=== PATIENT | male | born 2000 | race Hispanic/Latino ===

== ENCOUNTER 2024-12-02 13:57 | Emergency (ER) | payer MEDICAID ==
[~2024-12-02] VITALS: Ht 167.6 cm; Wt 72.6 kg
--- NOTE | 2024-12-02 15:46 | EKG ---
[facility] Test Date: 2024-12-02 Test Time: 15:44:11 Pat Name: BIJAL SKINNER Department: ED Room: Gender: M [employer]: [phone] : [phone] Requested By: ANOOP LEIGH Order Number: [id number] Reading MD: Jesus Adkins Measurements Intervals [place] Rate: 68 P: 71 MD: 156 QRS: 132 QRSD: 108 T: 66 QT: 369 QTc: 394 Interpretive Statements Sinus rhythm ST elevation suggests acute pericarditis No previous ECG available for comparison Electronically Signed On 12-03-2024 15:51:17 CDT by Jesus Adkins Please click the below link to view image of tracing.
[2024-12-02 15:57] LABS: AMPHET/METH SCREEN,URINE NEGATIVE (NEGATIVE); BARBITURATE SCREEN, URINE NEGATIVE (NEGATIVE); BENZODIAZEPINES SCREEN,URINE NEGATIVE (NEGATIVE); CANNABINOID SCREEN,URINE NEGATIVE (NEGATIVE); COCAINE SCREEN,URINE NEGATIVE (NEGATIVE); OPIATE SCREEN,URINE NEGATIVE (NEGATIVE); PHENCYCLIDINE SCREEN,URINE NEGATIVE (NEGATIVE)
[2024-12-02] MEDS: hydrOXYzine 50MG VIAL 50 MG/ML VIAL IM STA (15:57)
[2024-12-02 16:00] LABS: BASOPHILS # (AUTO) 0.06 K/uL (0.00-0.20); BASOPHILS % (AUTO) 0.6 % (0.0-5.0); EOSINOPHILS # (AUTO) 0.28 K/uL (0.00-0.70); EOSINOPHILS % (AUTO) 2.8 % (0.0-8.0); HEMATOCRIT 47.4 % (42-54); IMMATURE GRANULOCYTE ABSOLUTE 0.06 K/uL (0-1); LYMPHOCYTES # (AUTO) 2.3 K/uL (1.0-4.8); LYMPHOCYTES % (AUTO) 23.1 % (21.0-51.0); MEAN CORPUSCULAR HEMOGLOBIN 29.9 pg (27.0-33.0); MEAN CORPUSCULAR HGB CONC 32.5 g/dL (32.0-36.0); MONOCYTES # (AUTO) 0.7 K/uL (0.1-1.0); MONOCYTES % (AUTO) 7.2 % (3.0-13.0); NEUTROPHILS # (AUTO) 6.5 K/uL (1.8-7.7); NEUTROPHILS % (AUTO) 65.7 % (40.0-77.0); PLATELET COUNT (AUTO) 313 K/uL (130-400); RED BLOOD CELL COUNT(AUTO) 5.15 MIL/uL (4.50-6.20); RED CELL DISTRIBUTION WIDTH 13.1 % (11.0-15.5); WHITE BLOOD COUNT (AUTO) 9.9 K/uL (4.8-10.8)
[2024-12-02 16:12] LABS: CREATININE 0.9 mg/dL (0.5-1.3); POTASSIUM 4.2 mmol/L (3.5-5.1)
[2024-12-02] MEDS ORDERED: HYDR-3421 PO (16:47)
--- NOTE | 2024-12-02 16:48 | ERN ---
ED Note History of Present Illness Stated Complaint: ANXIETY Chief Complaint: Anxiety/Panic Attack Time Seen by MD: 13:59 Time Seen by Midlevel: 14:01 Dictation: 23-YEAR-OLD MALE WITH A HISTORY OF BUENO'S PALSY AND ANXIETY COMING IN WITH COMPLAINT OF UNABLE TO SLEEP SINCE LAST NIGHT. PATIENT WAS RECENTLY DIAGNOSED WITH DOSE PALSY IN HIS ALREADY TAKING A VALACYCLOVIR. DENIES ANY COMPLAINTS OTHER THAN NOT ON ABLE TO SLEEP AND HEADACHE. MOTHER STATING PATIENT GETS REALLY ANXIOUS AND CRYING DUE TO THE RECENT DIAGNOSIS. Allergies: Coded Allergies: No Known Drug Allergies (Unverified Allergy, Intermediate, 12/02/24) Home Meds Active Scripts Hydroxyzine HCl (Hydroxyzine HCl) 25 Mg Tablet, 1 TAB PO BID for anxiety for 15 Days, #30 TAB 0 Refills Prov:ANOOP LEIGH NP 12/02/24 Past Medical History Past Medical History: Other Additional Past Medical Hx: BELLS PALSY Surgical History: None Review of System Dictation CONSTITUTIONAL: NEGATIVE FOR FEVER,CHILLS, AND WEIGHT LOSS EYES: NEGATIVE FOR INJURY, PAIN,REDNESS, AND DISCHARGE ENT: NEGATIVE FOR INJURY,PAIN OR SWELLING CARDIOVASCULAR: NEGATIVE FOR CHEST PAIN, PALPITATIONS, AND EDEMA RESPIRATORY: NEGATIVE FOR SHORTNESS OF BREATH, COUGH, AND WHEEZING, ABDOMEN/GI: NEGATIVE FOR ABDOMINAL PAIN, NAUSEA, VOMITING, DIARRHEA, AND CONSTIPATION BACK: NEGATIVE FOR INJURY AND PAIN : NEGATIVE FOR INJURY, BLEEDING AND DISCHARGE MS/EXTREMITY: NEGATIVE FOR INJURY AND DEFORMITY SKIN: NEGATIVE FOR RASH, AND DISCOLORATION NEURO: NEGATIVE FOR HEADACHE, WEAKNESS, NUMBNESS, TINGLING, AND SEIZURE PSYCH: NEGATIVE FOR SUICIDE IDEATION, HOMICIDAL IDEATION, AND HALLUCINATIONS Review of Systems: was completed Initial Vital Sign VS Vital Signs Date Time Temp Pulse Resp B/P (MAP) Pulse Ox O2 Delivery O2 Flow Rate FiO2 12/02/24 13:58 98.4 72 20 128/72 99 Room Air 0 12/02/24 14:10 21 Physical Exam Dictation GENERAL: AWAKE, ALERT, NAD HEAD/FACE: NORMOCEPHALIC, ATRAUMATIC EYES: PERRL, EOMI, VISION AT BASELINE ENT: ORAL CAVITY CLEAR, TMS CLEAR, NO SIGNS OF INFECTION NECK: TRACHEA MIDLINE, SUPPLE, NO NUCHAL RIGIDITY CARDIOVASCULAR: RRR, NORMAL S1/S2, NO MRGS, NO JVD RESPIRATORY: CTAB, NO RESPIRATORY DISTRESS, NO RALES OR WHEEZES ABDOMEN: SOFT, NON-TENDER, NON-DISTENDED, NORMAL BOWEL SOUNDS, NO GUARDING OR REBOUND. SKIN: WARM, DRY, NORMAL TURGOR, NO RASH MS/EXTREMITY: PULSES EQUAL, NO CYANOSIS, NEUROVASCULAR INTACT, FROM NEURO: COAX4, GCS 15, STRENGTH 5/5, CN 2-12 INTACT, NORMAL CEREBELLAR EXAM, NORMAL GAIT, PSYCH: NORMAL BEHAVIOR, MOOD, AND AFFECT NORMAL Results (Laboratory/Radiology) Laboratory/Radiology Laboratory Tests Test 12/02/24 14:30 12/02/24 15:52 Urine Opiates Screen NEGATIVE (NEGATIVE) Urine Barbiturates Screen NEGATIVE (NEGATIVE) Urine Phencyclidine Screen NEGATIVE (NEGATIVE) Urine Amphetamines Screen NEGATIVE (NEGATIVE) Urine Benzodiazepines Screen NEGATIVE (NEGATIVE) Urine Cocaine Screen NEGATIVE (NEGATIVE) Urine Marijuana (THC) Screen NEGATIVE (NEGATIVE) White Blood Count 9.9 K/uL (4.8-10.8) Red Blood Count 5.15 MIL/uL (4.50-6.20) Hemoglobin 15.4 g/dL (14.0-18.0) Hematocrit 47.4 % (42-54) Mean Corpuscular Volume 92.0 fL (79-99) Mean Corpuscular Hemoglobin 29.9 pg (27.0-33.0) Mean Corpuscular Hemoglobin Concent 32.5 g/dL (32.0-36.0) Red Cell Distribution Width 13.1 % (11.0-15.5) Platelet Count 313 K/uL (130-400) Mean Platelet Volume 8.0 fL (7.5-10.5) Immature Granulocyte % (Auto) 0.6 % (0-1) Neutrophils (%) (Auto) 65.7 % (40.0-77.0) Lymphocytes (%) (Auto) 23.1 % (21.0-51.0) Monocytes (%) (Auto) 7.2 % (3.0-13.0) Eosinophils (%) (Auto) 2.8 % (0.0-8.0) Basophils (%) (Auto) 0.6 % (0.0-5.0) Neutrophils # (Auto) 6.5 K/uL (1.8-7.7) Lymphocytes # (Auto) 2.3 K/uL (1.0-4.8) Monocytes # (Auto) 0.7 K/uL (0.1-1.0) Eosinophils # (Auto) 0.28 K/uL (0.00-0.70) Basophils # (Auto) 0.06 K/uL (0.00-0.20) Absolute Immature Granulocyte (auto 0.06 K/uL (0-1) Nucleated Red Blood Cells 0.0 % (0.0-0.19) Sodium Level 141 mmol/L (136-145) Potassium Level 4.2 mmol/L (3.5-5.1) Chloride Level 104 mmol/L (101-111) Carbon Dioxide Level 31 mmol/L (21-32) Blood Urea Nitrogen 11 mg/dL (7-18) Creatinine 0.9 mg/dL (0.5-1.3) Glomerular Filtration Rate Calc 123 mL/min (>90) Random Glucose 95 mg/dL (70-105) Total Calcium 9.1 mg/dL (8.5-10.1) Labs Reviewed?: Yes ED Course ED Course Orders Procedure Category Date Status Time Cbc With Differential LAB 12/02/24 Complete 15:30 Basic Metabolic Panel LAB 12/02/24 Complete 15:30 12 Lead Ekg Tracing- EKG 12/02/24 Complete Technical 15:30 Drug Screen Urine LAB 12/02/24 Complete 15:30 Hydroxyzine 50mg Vial PHA 12/02/24 Complete (Atarax 50mg Inj) 15:30 Current Medications Medications (Trade) Dose Ordered Sig/Dimple Route PRN Reason Start Time Stop Time Status Last Admin Dose Admin Hydroxyzine HCl (ATArax 50MG INJ) 25 mg ONCE STAT IM 12/02/24 15:30 12/02/24 15:34 DC 12/02/24 15:57 Vital Signs Date Time Temp Pulse Resp B/P (MAP) Pulse Ox O2 Delivery O2 Flow Rate FiO2 12/02/24 16:57 98.4 77 20 131/74 99 Room Air* 0 21 12/02/24 14:10 98.4 72 20 128/72 99 Room Air* 0 21 12/02/24 13:58 98.4 72 20 128/72 99 Room Air 0 Medical Decision Making MDM MDM: 23-YEAR-OLD MALE WITH A HISTORY OF BUENO'S PALSY AND ANXIETY COMING IN WITH COMPLAINT OF UNABLE TO SLEEP SINCE LAST NIGHT. PATIENT WAS RECENTLY DIAGNOSED WITH DOSE PALSY IN HIS ALREADY TAKING A VALACYCLOVIR. DENIES ANY COMPLAINTS OTHER THAN NOT ON ABLE TO SLEEP AND HEADACHE. MOTHER STATING PATIENT GETS REALLY ANXIOUS AND CRYING DUE TO THE RECENT DIAGNOSIS. BLOOD WORK AND EKGS UNREMARKABLE. PATIENT STATES AFTER HYDROXYZINE HE FEELS MUCH BETTER. DISCUSSED WITH THE PATIENT THAT HE NEEDS TO FOLLOW UP WITH PCP BECAUSE THEY ARE CONCERNED THAT THE IV ACYCLOVIR IS TOO MUCH. ALSO WE WILL PRESCRIBE HYDROXYZINE TO TAKE HOME AND EDUCATED THEM ON WHEN TO TAKE IT. DISCUSSED IF ANY SYMPTOMS WORSEN RETURN TO THE HOSPITAL OTHERWISE FOLLOW UP WITH PCP. DIFFERENTIAL DIAGNOSIS: ANXIETY, DRUG ABUSE, DEHYDRATION, ELECTROLYTE ABNORMALITY. RATIONALE: TESTS CONSIDERED AND ORDERED SECONDARY TO SHARED DECISION MAKING INCLUDE: PREVIOUS OUTSIDE RECORDS REVIEWED: OLD ER VISITS. RISK OF COMPLICATION AND/OR MORBIDITY OR MORTALITY OF PATIENT MANAGEMENT: NONE MEDICATIONS-PER MEDICATION RECONCILIATION NEED FOR HOSPITALIZATION: PATIENT DOES NOT MEET CRITERIA FOR HOSPITALIZATION. NEED FOR EMERGENCY MAJOR/MINOR SURGERY: NO THERE ARE NO SOCIAL CONCERNS WITH THIS PATIENT. PRESCRIPTION DRUG MANAGEMENT PRESCRIPTIONS WILL INCLUDE SYMPTOMATIC CARE PATIENT'S PRIOR EXTERNAL MEDICAL RECORDS FROM OTHER ER VISITS WERE REVIEWED BY ME INDICATED. PRIOR TESTING AND RESULTS FROM PREVIOUS VISITS WERE REVIEWED. PRIOR TESTS WERE TAKEN INTO ACCOUNT WITH MEDICAL DECISION MAKING AND RESOURCE UTILIZATION, INDEPENDENT HISTORIAN/HISTORIANS WERE USED TO OBTAIN COMPLETE MEDICAL HISTORY. I INDEPENDENTLY INTERPRETED THE TEST THAT WERE PERFORMED, RESULTS WERE REVIEWED BY ME AND CONSIDERED FINDINGS ON RADIOLOGY IF ORDERED. MEDICAL MANAGEMENT AND EXAMINATION INTERPRETATION DISCUSSIONS WERE HAD BY ME WITH OTHER QUALIFIED HEALTHCARE PROFESSIONALS INDICATED FOR THE PATIENT'S CARE. DX & DISP Disposition: Discharge Departure Impression: Primary Impression: Anxiety Additional Impression: Hx of Bueno's palsy Condition: Stable Scripts Hydroxyzine HCl (Hydroxyzine HCl) 25 Mg Tablet 1 TAB PO BID for anxiety for 15 Days, #30 TAB 0 Refills Prov: ANOOP LEIGH NP 12/02/24 Additional Instructions: PLEASE CALL YOUR PCP IF YOU STILL HAVE CONCERNS ON YOUR ACYCLOVIR. TAKE HYDROXYZINE SEEN PRESCRIBED. FOLLOW UP WITH YOUR PCP. Referrals: IRVIN CASE MD (PCP) Time of Disposition: 16:46 I have reviewed the case, and I agree with, Diagnosis and Plan ANOOP LEIGH NP December 02, 2024 16:48 SANGEETA RAMIREZ DO December 03, 2024 10:00
[2024-12-02 16:57] VITALS: BP 131/74; PULSE 77; RESP 20; TEMP 98.4; O2SAT 99
== END 2024-12-02 16:58 | disposition home or self-care (01) ==
LOC: EDH 13:57
DX: F41.9 Anxiety disorder, unspecified (principal); G51.0 Bell's palsy; Z79.899 Other long term (current) drug therapy
CPT/HCPCS: 99284; 80048; 80305; 85025; 36415; 96372; 93005; J3410